=== PATIENT | male | born 1980 | race Two or more races ===

== ENCOUNTER 2025-01-14 13:26 | Emergency (ER) | payer OTHER ==
[~2025-01-14] VITALS: Ht 170.2 cm; Wt 85.3 kg
[2025-01-14] MEDS ORDERED: METHOCARBAMOL (500MG) 500 MG TABLET ONE (14:36)
[2025-01-14] MEDS ORDERED: ACETAMINOPHEN ES 500 MG TABLET ONE (14:36)
[2025-01-14] MEDS: ACETAMINOPHEN 325 MG TABLET PO ONE (14:48)
[2025-01-14] MEDS: METHOCARBAMOL (750MG) 750 MG TABLET PO ONE (14:48)
[2025-01-14 14:51] LABS: INR 0.91 (0.91-1.10)
[2025-01-14 17:53] LABS: SODIUM SERUM 134.0 mmol/L (136-145)
[2025-01-14 17:54] LABS: CALCIUM, SERUM 9.0 mg/dL (8.5-10.1); CREATININE 1.3 mg/dL (0.6-1.3); UREA NITROGEN, BLOOD 25.0 mg/dL (7-18)
[2025-01-14 18:14] VITALS: BP 145/95; TEMP 98.5; O2SAT 98
[2025-01-14 19:14] LABS: APPEARANCE,URINE CLEAR (CLEAR); BLOOD, URINE TRACE-INTA Ery/uL (NEGATIVE); LEUKOCYTE ESTERASE ,URINE NEGATIVE (NEGATIVE); NITRITE, URINE NEGATIVE (NEGATIVE); UGLUCOSE TRACE mg/dL (NEGATIVE)
[2025-01-14 19:23] LABS: ADD URINE CULTURE NO; SQUAMOUS EPITHELIAL CELL,UR 0-2 /HPF (None Seen)
[2025-01-14 19:24] LABS: PLATELET COUNT (AUTO) 202 K/uL (150-450); RED BLOOD CELL COUNT(AUTO) 5.11 MIL/uL (4.5-6.0); RED CELL DISTRIBUTION WIDTH 12.8 % (11.5-15.0); WHITE BLOOD COUNT (AUTO) 6.5 K/uL (4.3-11.0)
== END 2025-01-14 18:15 | disposition left against medical advice (07) ==
LOC: ER 13:34
DX: S29.012A Strain of muscle and tendon of back wall of thorax, initial encounter (principal); M54.2 Cervicalgia; R07.9 Chest pain, unspecified; E11.9 Type 2 diabetes mellitus without complications; E78.5 Hyperlipidemia, unspecified; I10 Essential (primary) hypertension; X58.XXXA Exposure to other specified factors, initial encounter; Y93.89 Activity, other specified; Y92.89 Other specified places as the place of occurrence of the external cause; Y99.8 Other external cause status
CPT/HCPCS: 36415; 70450-TC; 71045-TC; 80048-TC; 81001; 82962-TC; 84484-TC; 85025-TC; 85730-TC